=== PATIENT | male | born 1980 | race American Indian/Alaskan Native ===

== ENCOUNTER 2016-11-22 10:04 | Emergency (ER) | payer OTHER ==
[2016-11-22] MEDS ORDERED: MORPHINE IM ONE (10:41)
--- NOTE | 2016-11-22 10:42 | Emergency Department Report ---
Chief Complaint: Extremity Injury, Upper Stated Complaint: DISLOCATED RT ARM Time Seen by Provider: 11/22/16 10:39 - HPI History of Present Illness: 35-year-old -[place] male comes in for concern of dislocation of the right shoulder. Patient reports he has a history of dislocation of that shoulder he is usually able to place it back but not able to today. Patient reports that he slipped and fell about 3 AM and now come in and be evaluated. Patient has no known drug allergies currently takes no medications. - Exam Vital Signs: Vital Signs 11/22/16 10:25 Temperature 98.6 F Pulse Rate 72 Respiratory 20 Rate Blood Pressure 130/75 O2 Sat by Pulse 97 Oximetry Physical Exam: Patient's alert and oriented he does appear to be in acute discomfort. Obvious deformity of the right shoulder is placed in the sling patient is not able to elevate. MSE screening note: Focused history and physical exam performed. Due to findings the following was ordered: Patient's been evaluated by this provider. We will order an x-ray of right shoulder. Morphine 2 mg IM now patient be evaluated in a main ER. ED Disposition for MSE Condition: Stable
[2016-11-22] MEDS ORDERED: ZOFRAN IV ONE (10:51)
[2016-11-22] MEDS ORDERED: MORPHINE IV ONE ×2 (10:51→11:21)
[2016-11-22] MEDS ORDERED: AMIDATE IV ONE ×2 (11:11→11:40)
--- NOTE | 2016-11-22 11:15 | XRay Report ---
RIGHT SHOULDER: History: Right shoulder pain. An anterior, inferior dislocation is identified at the right glenohumeral joint. There is normal articulation at the a.c. joint. Normal bone mineralization. No obvious fracture. IMPRESSION: Dislocation.
[2016-11-22] MEDS ORDERED: MORPHINE ONE (11:18)
--- NOTE | 2016-11-22 12:00 | Emergency Department Report ---
ED Upper Extremity Inj HPI - General Chief Complaint: Extremity Injury, Upper Stated Complaint: DISLOCATED RT ARM Time Seen by Provider: 11/22/16 10:39 Source: patient Mode of arrival: Ambulatory Limitations: No Limitations - History of Present Illness Initial Comments: 35-year-old male with a past medical history of recurrent right shoulder dislocation presents to the hospital complaints of right shoulder dislocation. Patient fell and outstretched hand resulting in right shoulder dislocation. Pain is constant, throbbing, rated 10/10 intensity. Worse with palpation and movement. No alleviating factors reported. Patient is right-hand dominant. Three previous dislocations in the past. - Related Data Previous Rx's Medication Instructions Recorded Last Taken Type Ondansetron [Zofran Odt] 4 mg PO Q6H #20 tab.rapdis 10/25/14 Unknown Rx Ibuprofen [Motrin] 800 mg PO Q8HR PRN #30 tablet 11/22/16 Unknown Rx traMADol [Ultram 50 MG tab] 50 mg PO Q6HR PRN #20 tablet 11/22/16 Unknown Rx Allergies Allergy/AdvReac Type Severity Reaction Status Date / Time No Known Allergies Allergy Unverified 10/25/14 04:51 ED Review of Systems ROS: Stated complaint: DISLOCATED RT ARM Other details as noted in HPI Comment: All other systems reviewed and negative Other: Constitutional: No fevers chills Eyes: No eye pain visual changes ENT: No ear pain or throat pain Neck: Denies pain Respiratory: Denies cough wheezing shortness of breath Cardiovascular: Denies chest pain, palpitations, syncope GI: Denies abdominal pain, nausea, vomiting, diarrhea : Denies dysuria Musculoskeletal: as per hpi Skin: Denies rash, lesions, erythema Neurologic: Denies headache, numbness, weakness Psychiatric: Denies suicidal ideation, hallucinations ED Past Medical Hx - Social History Smoking Status: Current Every Day Smoker Substance Use Type: Alcohol - Medications Home Medications: Home Medications Medication Instructions Recorded Confirmed Last Taken Type Ondansetron [Zofran Odt] 4 mg PO Q6H #20 tab.rapdis 10/25/14 Unknown Rx Ibuprofen [Motrin] 800 mg PO Q8HR PRN #30 tablet 11/22/16 Unknown Rx traMADol [Ultram 50 MG tab] 50 mg PO Q6HR PRN #20 tablet 11/22/16 Unknown Rx ED Physical Exam - General Limitations: No Limitations - Other Other exam information: General: No limitations, patient is alert in no acute distress Head exam: Atraumatic, normocephalic Eyes exam: Normal appearance ENT: Moist mucous membrane, normal oropharynx Neck exam: Normal inspection, full range of motion Respiratory exam: Clear to auscultation bilateral, no wheezes, rales, crackles Cardiovascular: Normal rate and rhythm, normal heart sounds Abdomen: Soft, nondistended, and nontender, with normal bowel sounds, no rebound, or guarding Extremity: Right shoulder deformity with likely dislocation. Back: Normal Inspection, full range of motion, no tenderness Neurologic: Alert, oriented x3, cranial nerves intact, no motor or sensory deficit Psychiatric: normal affect, normal mood Skin: Warm, dry, intact ED Course Vital Signs 11/22/16 11/22/16 11/22/16 10:25 11:10 11:30 Temperature 98.6 F Temperature [ Intra-Procedure ] Temperature [ Post-Procedure] Temperature [ 98.3 F Pre-Procedure] Pulse Rate 72 60 Pulse Rate [ Intra-Procedure ] Pulse Rate [ Post-Procedure] Pulse Rate [Pre 67 -Procedure] Respiratory 20 24 Rate Respiratory Rate [Intra- Procedure] Respiratory Rate [Post- Procedure] Respiratory 16 Rate [Pre- Procedure] Blood Pressure 130/75 Blood Pressure [Intra- Procedure] Blood Pressure [Post-Procedure ] Blood Pressure 147/89 [Pre-Procedure] O2 Sat by Pulse 97 Oximetry O2 Sat by Pulse Oximetry [ Intra-Procedure ] O2 Sat by Pulse Oximetry [Post -Procedure] O2 Sat by Pulse 99 Oximetry [Pre- Procedure] 11/22/16 11/22/16 11/22/16 11:35 11:39 11:40 Temperature Temperature [ 98.3 F Intra-Procedure ] Temperature [ 98.6 F Post-Procedure] Temperature [ Pre-Procedure] Pulse Rate 81 Pulse Rate [ 65 Intra-Procedure ] Pulse Rate [ 69 Post-Procedure] Pulse Rate [Pre -Procedure] Respiratory 28 H Rate Respiratory 16 Rate [Intra- Procedure] Respiratory 16 Rate [Post- Procedure] Respiratory Rate [Pre- Procedure] Blood Pressure Blood Pressure 156/76 [Intra- Procedure] Blood Pressure 138/67 [Post-Procedure ] Blood Pressure [Pre-Procedure] O2 Sat by Pulse Oximetry O2 Sat by Pulse 98 Oximetry [ Intra-Procedure ] O2 Sat by Pulse 100 Oximetry [Post -Procedure] O2 Sat by Pulse Oximetry [Pre- Procedure] - Reevaluation(s) Reevaluation #1: 11/22/16 12:37 pt improved with ed treatment. Pain improved after reduction. Received Morphine and zofran prior to reduction - Moderate Sedation Indications: fracture/dislocation redu ASA Class: I Mallampati Airway Score: 2 Preparation: plasterer tender applied, pulse oximeter, capnometry used, supplemental O2 applied, suction/airway equipment at bedside, IV secured IV Etomidate Dose (mgs): 15 Complications: none Patient Tolerated Procedure: well - Orthopedic Joint Reduction Joint #1 Consent Obtained: written consent Time Out Performed: Yes Side: right Joint Reduction Location: shoulder Analgesia: moderate sedation Shoulder Technique Used (if applicable): traction/counter-traction Technique Used: traction/counter-traction Post-Reduction Neuro Exam: intact Post-Reduction Vascular Exam: intact Post Reduction X-Ray Obtained: Yes Post Reduction X-Ray Results: reduced Splint Applied: Yes (immobilzer) Patient Tolerated Procedure: well ED Medical Decision Making - Radiology Data Radiology results: report reviewed Right shoulder dislocation no fracture post reduction r shoulder dislocation: Excessive reduction. Possible Bankart lesion at the inferior glenoid - Medical Decision Making Successful reduction of right shoulder dislocation without any complication during conscious sedation. Patient may have a Bankart lesion and needs to see orthopedics and have a outpatient MRI. Immobilizer provided and follow-up will be encouraged - Differential Diagnosis dislocation, fracture, contusion, sprain Critical Care Time: No Critical care attestation.: If time is entered above; I have spent that time in minutes in the direct care of this critically ill patient, excluding procedure time. ED Disposition Clinical Impression: Recurrent dislocation, right shoulder, Bankart lesion of right shoulder Disposition: DISCHARGED TO HOME OR SELFCARE Is pt being admited?: No Does the pt Need Aspirin: No Condition: Stable Instructions: Shoulder Dislocation (ED) Additional Instructions: X-ray show successful reduction of your shoulder however, you may have a fracture at the lower end of your glenoid/articulating surface of the scapula. MRI will likely be necessary to fully assess shoulder injury but to be determined by the Orthopedic doctor. Continue to wear the immobilizer until you follow up with the Orthopedic doctor. Prescriptions: Ibuprofen [Motrin] 800 mg PO Q8HR PRN #30 tablet PRN Reason: Pain traMADol [Ultram 50 MG tab] 50 mg PO Q6HR PRN #20 tablet PRN Reason: Pain Referrals: RUPINDER STEINER MD [Staff Physician] - 3-5 Days Time of Disposition: 12:35
--- NOTE | 2016-11-22 12:17 | XRay Report ---
RIGHT SHOULDER, ONE VIEW History: Pain, dislocation, postreduction film. Findings: The anterior, inferior dislocation at the right glenohumeral joint has been reduced. There is subtle irregularity along the inferior rim of the glenoid. This could represent a Bankart lesion. This could be fully evaluated with MRI right shoulder if needed. There is no convincing Hill-Sachs lesion. Impression: Anatomic alignment of the right shoulder. Questionable Bankart lesion. Consider further evaluation with MRI.
[2016-11-22 12:42] VITALS: BP 150/87
== END 2016-11-22 13:14 | disposition home or self-care (01) ==
LOC: ED 10:04
DX: S43.004A Unspecified dislocation of right shoulder joint, initial encounter (principal); F17.200 Nicotine dependence, unspecified, uncomplicated; Z79.1 Long term (current) use of non-steroidal anti-inflammatories (NSAID); Z79.899 Other long term (current) drug therapy; W19.XXXA Unspecified fall, initial encounter; Y93.89 Activity, other specified; Y92.89 Other specified places as the place of occurrence of the external cause; Y99.8 Other external cause status
CPT/HCPCS: 23650; 73020; 73030; 96374; 96375; 99284; J2270; J2405